=== PATIENT | female | born 1980 | race Hispanic/Latino ===

== ENCOUNTER 2023-05-27 14:07 | Inpatient (IN) | payer OTHER, SELFPAY ==
[2023-05-27 17:26] VITALS: BMI 47.2
[2023-05-27] MEDS ORDERED: Nicotine 14 MG PATCH TD PRN (18:15)
[2023-05-27] MEDS ORDERED: Calcium Carbonate 500 MG ChewTAB PO PRN (18:16)
[2023-05-27] MEDS ORDERED: Ondansetron ODT 4 MG TAB PO PRN (18:16)
[2023-05-27] MEDS ORDERED: VANCOMYCIN 2 GRAM/500 ML BAG 2 GM in Premix Bag 1 BAG IVPB SCH (18:30)
[2023-05-27] MEDS ORDERED: Meropenem 1 GM in Sodium Chloride 0.9% 100 ML IVPB SCH ×2 (18:30→18:45)
[2023-05-27] MEDS ORDERED: Vancomycin 1 GM in Premix Bag 1 BAG IVPB SCH (18:30)
[2023-05-27] MEDS ORDERED: Electrolyte Replacement Protocol 1 EACH FS PRN (19:15)
[2023-05-27] MEDS: HYDROcodone/Acetaminophen 5/325 mg Tablet PO PRN (19:51)
[2023-05-27] MEDS: Famotidine 20 MG TAB PO SCH (19:53)
[2023-05-27] MEDS: Atorvastatin Calcium 40 MG TAB PO SCH (19:53)
[2023-05-27] MEDS: Multivit, Therapeutic 1 TAB PO SCH (19:53)
[2023-05-27] MEDS: Acetaminophen 325 MG TAB PO PRN (19:53)
[2023-05-27] MEDS: Nystatin Powder 15 GM BOT TOP SCH (19:54)
[2023-05-27] MEDS: Nystatin 500,000 UNITS/5 ML UDCUP SSW SCH ×2 (22:10→22:13)
[2023-05-27] MEDS: Senokot S 8.6-50 MG TAB PO SCH (22:10)
[2023-05-27 23:13] LABS: #Basophils 0.1 thou/uL (0.0-0.2); #Eosinphils 0.1 thou/uL (0.0-0.7); #Monocytes 1.2 thou/uL (0.11-0.59); #Neutrophils 12.1 thou/uL (1.40-6.50); %Basophils 0.3 % (0.0-1.0); %Eosinophils 0.5 % (0.0-10.0); %Lymphocytes 8.9 % (21.0-51.0); %Neutrophils 81.5 % (42.0-75.0); Hemoglobin 7.6 g/dL (12.0-16.0); Mean Corpuscular HGB CONC 31.4 g/dL (32.0-36.0); Mean Corpuscular Hemoglobin 27.2 pg (27.0-31.0); Mean Corpuscular Volume 86.7 fl (78.0-98.0); Mean Platelet Volume 9.3 fL (7.4-10.4); Platelet Count 524 10x3/uL (130-400); RBC Distribution Width 15.2 % (11.5-14.5); Red Blood Cell (RBC) Count 2.79 mill/uL (4.20-5.40); White Blood Cell (WBC) Count 14.9 10x3/uL (4.8-10.8)
[2023-05-27 23:35] LABS: Vancomycin, Random 19.5 ug/mL (See Comment)
[2023-05-27 23:37] LABS: Hemoglobin A1c 5.6 % (4.0-6.0)
[2023-05-27 23:39] LABS: ALT (SGPT) 14 U/L (8-55); AST (SGOT) 12 U/L (5-34); Albumin 2.3 g/dL (3.5-5.0); Alkaline Phosphatase 59 U/L (40-110); Anion Gap 11 mmol/L (10-20); BUN (Urea Nitrogen) 7 mg/dL (7.0-18.7); Bilirubin, Total 0.2 mg/dL (0.2-1.2); CRP (Inflammatory) 10.21 mg/dL (= or < 0.5); Calc. Creatinine Clearance 177 mL/min (70-130); Calcium 8.3 mg/dL (7.8-10.44); Carbon Dioxide 23 mmol/L (22-29); Chloride 104 mmol/L (98-107); Estimated GFR 85; Globulin 3.2 g/dL (2.4-3.5); Glucose 105 mg/dL (70-105); Potassium 3.7 mmol/L (3.5-5.1); Protein, Total 5.5 g/dL (6.0-8.3); Sodium 134 mmol/L (136-145)
[2023-05-28 01:13] LABS: Bilirubin Negative (Negative); Blood, Urine 2+ (Negative); Clarity Clear (Clear); Glucose, Urine (Dipstick) Normal (Negative); Ketone, Urine Negative (Negative); Leukocyte Negative Leu/uL (Negative); Nitrite Negative (Negative); Protein, Urine (Dipstick) Negative (Neg-Trace); Specific Gravity, Urine 1.013 (1.002-1.036); Squamous Epithelial 0-3 HPF (0-3); Urobilinogen Normal mg/dL (Less than 2); WBC/HPF 0-3 HPF (0-3); pH, Urine 5.5 (5.0-9.0)
[2023-05-28 01:15] LABS: Bacteria/HPF Rare-Few HPF (None Seen)
[2023-05-28] MEDS: VANCOMYCIN 1.25 GM/250 ML BAG 1.25 GM in Premix Bag 1 BAG IVPB SCH ×2 (02:15→16:31)
[2023-05-28] MEDS: HYDROcodone/Acetaminophen 5/325 mg Tablet PO PRN ×3 (02:16→18:22)
[2023-05-28] MEDS: Acetaminophen 325 MG TAB PO PRN (02:19)
[2023-05-28] MEDS: Meropenem 1 GM in Sodium Chloride 0.9% 100 ML IVPB SCH ×3 (03:59→20:30)
[2023-05-28] MEDS: Morphine 4 MG/ML VIAL SLOW IVP PRN (08:59)
[2023-05-28] MEDS ORDERED: Hydrochlorothiazide 25 MG TAB PO SCH (09:00)
[2023-05-28] MEDS: Potassium Chloride 20 MEQ TAB PO SCH (09:02)
[2023-05-28] MEDS: Sertraline 25 MG TAB PO SCH (09:03)
[2023-05-28] MEDS: Venlafaxine 75 MG TAB PO SCH (09:04)
[2023-05-28] MEDS: Amlodipine 10 MG TAB PO SCH (09:04)
[2023-05-28] MEDS: Famotidine 20 MG TAB PO SCH ×2 (09:05→20:31)
[2023-05-28] MEDS: Hydrochlorothiazide 25 MG TAB PO SCH (09:05)
[2023-05-28] MEDS: Nystatin 500,000 UNITS/5 ML UDCUP SSW SCH ×4 (09:12→20:31)
[2023-05-28] MEDS: Senokot S 8.6-50 MG TAB PO SCH ×2 (09:15→20:31)
[2023-05-28] MEDS: Nystatin Powder 15 GM BOT TOP SCH ×2 (10:55→20:29)
[2023-05-28] MEDS ORDERED: Magnevist 469MG/ML 20 ML VIAL ONE (11:06)
[2023-05-28] MEDS: Saccharomyces boulardii 250 MG CAP PO SCH (13:24)
[2023-05-28 16:37] LABS: HIV (1/2) Antibody/Antigen Non-Reactive (NonReactive); HIV 1/2 INDEX 0.11 S/CO (<1.00)
[2023-05-28] MEDS ORDERED: Potassium Chloride 20 MEQ TAB PO SCH (17:00)
[2023-05-28] MEDS: Multivit, Therapeutic 1 TAB PO SCH (20:31)
[2023-05-28] MEDS: Atorvastatin Calcium 40 MG TAB PO SCH (20:32)
[2023-05-28] MEDS: Clindamycin/D5W 600 MG in Premix Bag 1 BAG IVPB SCH (23:28)
[2023-05-29 02:37] LABS: Vancomycin, Trough 19.1 ug/mL
[2023-05-29 02:44] LABS: Anion Gap 18 mmol/L (10-20); BUN (Urea Nitrogen) 8 mg/dL (7.0-18.7); Calc. Creatinine Clearance 152 mL/min (70-130); Calcium 9.3 mg/dL (7.8-10.44); Carbon Dioxide 17 mmol/L (22-29); Chloride 107 mmol/L (98-107); Estimated GFR 71; Glucose 85 mg/dL (70-105); Potassium 4.6 mmol/L (3.5-5.1); Sodium 137 mmol/L (136-145)
[2023-05-29] MEDS: VANCOMYCIN 1.25 GM/250 ML BAG 1.25 GM in Premix Bag 1 BAG IVPB SCH ×2 (03:31→16:30)
[2023-05-29] MEDS: Meropenem 1 GM in Sodium Chloride 0.9% 100 ML IVPB SCH ×3 (05:28→20:33)
[2023-05-29] MEDS: Clindamycin/D5W 600 MG in Premix Bag 1 BAG IVPB SCH ×3 (07:22→21:35)
[2023-05-29 07:30] LABS: #Eosinphils 0.1 thou/uL (0.0-0.7); #Monocytes 0.9 thou/uL (0.11-0.59); #Neutrophils 9.5 thou/uL (1.40-6.50); %Basophils 0.3 % (0.0-1.0); %Eosinophils 0.7 % (0.0-10.0); %Lymphocytes 11.1 % (21.0-51.0); %Monocytes 7.2 % (0.0-10.0); Mean Corpuscular HGB CONC 30.5 g/dL (32.0-36.0); Mean Corpuscular Hemoglobin 26.4 pg (27.0-31.0); Mean Corpuscular Volume 86.5 fl (78.0-98.0); Mean Platelet Volume 9.8 fL (7.4-10.4); Platelet Count 632 10x3/uL (130-400); RBC Distribution Width 15.2 % (11.5-14.5); Red Blood Cell (RBC) Count 3.03 mill/uL (4.20-5.40); White Blood Cell (WBC) Count 11.9 10x3/uL (4.8-10.8)
[2023-05-29 08:25] LABS: Lactic Acid 1.6 mmol/L (0.5-2.2)
[2023-05-29 08:27] LABS: Anion Gap 13 mmol/L (10-20); BUN (Urea Nitrogen) 7 mg/dL (7.0-18.7); Calc. Creatinine Clearance 177 mL/min (70-130); Carbon Dioxide 24 mmol/L (22-29); Chloride 105 mmol/L (98-107); Sodium 138 mmol/L (136-145)
[2023-05-29 08:28] LABS: Calcium 8.8 mg/dL (7.8-10.44); Estimated GFR 85; Glucose 90 mg/dL (70-105)
[2023-05-29] MEDS: HYDROcodone/Acetaminophen 5/325 mg Tablet PO PRN ×2 (08:35→15:40)
[2023-05-29] MEDS: Famotidine 20 MG TAB PO SCH ×2 (08:36→20:27)
[2023-05-29] MEDS: Potassium Chloride 20 MEQ TAB PO SCH (08:36)
[2023-05-29] MEDS: Sertraline 25 MG TAB PO SCH (08:36)
[2023-05-29] MEDS: Venlafaxine 75 MG TAB PO SCH (08:36)
[2023-05-29] MEDS: Hydrochlorothiazide 25 MG TAB PO SCH (08:37)
[2023-05-29] MEDS: Amlodipine 10 MG TAB PO SCH (08:37)
[2023-05-29] MEDS: Nystatin 500,000 UNITS/5 ML UDCUP SSW SCH ×4 (08:37→20:27)
[2023-05-29] MEDS: Senokot S 8.6-50 MG TAB PO SCH ×2 (10:44→20:28)
[2023-05-29] MEDS: Nystatin Powder 15 GM BOT TOP SCH ×2 (10:44→20:28)
[2023-05-29] MEDS ORDERED: Furosemide 40 MG/4 ML VIAL SLOW IVP SCH (11:00)
[2023-05-29] MEDS ORDERED: Gabapentin 300 MG CAP PO SCH (11:00)
[2023-05-29] MEDS: Saccharomyces boulardii 250 MG CAP PO SCH (14:38)
[2023-05-29] MEDS: Multivit, Therapeutic 1 TAB PO SCH (20:28)
[2023-05-29] MEDS: Atorvastatin Calcium 40 MG TAB PO SCH (20:28)
[2023-05-29] MEDS: Gabapentin 300 MG CAP PO SCH (20:28)
[2023-05-29] MEDS: Acetaminophen 325 MG TAB PO PRN (20:33)
[2023-05-30 02:33] LABS: #Basophils 0.1 thou/uL (0.0-0.2); #Eosinphils 0.1 thou/uL (0.0-0.7); #Monocytes 0.9 thou/uL (0.11-0.59); #Neutrophils 7.8 thou/uL (1.40-6.50); %Basophils 0.6 % (0.0-1.0); %Eosinophils 1.2 % (0.0-10.0); %Monocytes 8.6 % (0.0-10.0); %Neutrophils 76.1 % (42.0-75.0); Hemoglobin 8.1 g/dL (12.0-16.0); Mean Corpuscular HGB CONC 30.9 g/dL (32.0-36.0); Mean Corpuscular Hemoglobin 26.5 pg (27.0-31.0); Mean Corpuscular Volume 85.6 fl (78.0-98.0); Mean Platelet Volume 9.2 fL (7.4-10.4); Platelet Count 641 10x3/uL (130-400); Red Blood Cell (RBC) Count 3.06 mill/uL (4.20-5.40); White Blood Cell (WBC) Count 10.3 10x3/uL (4.8-10.8)
[2023-05-30 02:54] LABS: Vancomycin, Trough 19.2 ug/mL
[2023-05-30] MEDS: VANCOMYCIN 1.25 GM/250 ML BAG 1.25 GM in Premix Bag 1 BAG IVPB SCH ×2 (03:22→15:39)
[2023-05-30 03:55] LABS: Anion Gap 12 mmol/L (10-20); BUN (Urea Nitrogen) 9 mg/dL (7.0-18.7); CRP (Inflammatory) 8.09 mg/dL (= or < 0.5); Calc. Creatinine Clearance 181 mL/min (70-130); Calcium 8.5 mg/dL (7.8-10.44); Carbon Dioxide 24 mmol/L (22-29); Chloride 103 mmol/L (98-107); Estimated GFR 88; Glucose 112 mg/dL (70-105); Potassium 4.1 mmol/L (3.5-5.1); Sodium 135 mmol/L (136-145)
[2023-05-30] MEDS: Meropenem 1 GM in Sodium Chloride 0.9% 100 ML IVPB SCH ×3 (05:31→20:33)
[2023-05-30] MEDS: Clindamycin/D5W 600 MG in Premix Bag 1 BAG IVPB SCH ×3 (05:32→22:40)
[2023-05-30] MEDS: Acetaminophen 325 MG TAB PO PRN (05:51)
[2023-05-30] MEDS: Morphine 4 MG/ML VIAL SLOW IVP PRN ×2 (05:51→10:27)
[2023-05-30] MEDS: Potassium Chloride 20 MEQ TAB PO SCH (09:04)
[2023-05-30] MEDS: Gabapentin 300 MG CAP PO SCH ×2 (09:04→20:31)
[2023-05-30] MEDS: Nystatin 500,000 UNITS/5 ML UDCUP SSW SCH ×4 (09:05→20:31)
[2023-05-30] MEDS: Famotidine 20 MG TAB PO SCH ×2 (09:05→20:31)
[2023-05-30] MEDS: Venlafaxine 75 MG TAB PO SCH (09:05)
[2023-05-30] MEDS: Sertraline 25 MG TAB PO SCH (09:05)
[2023-05-30] MEDS: Amlodipine 10 MG TAB PO SCH (09:08)
[2023-05-30] MEDS: Nystatin Powder 15 GM BOT TOP SCH ×2 (09:08→20:36)
[2023-05-30] MEDS: Senokot S 8.6-50 MG TAB PO SCH ×2 (09:08→20:36)
[2023-05-30] MEDS ORDERED: Furosemide 40 MG/4 ML VIAL SLOW IVP SCH (10:45)
[2023-05-30] MEDS: Saccharomyces boulardii 250 MG CAP PO SCH (15:39)
[2023-05-30] MEDS: Furosemide 40 MG/4 ML VIAL SLOW IVP SCH (15:40)
[2023-05-30] MEDS: Multivit, Therapeutic 1 TAB PO SCH (20:31)
[2023-05-30] MEDS: Atorvastatin Calcium 40 MG TAB PO SCH (20:31)
[2023-05-30] MEDS: HYDROcodone/Acetaminophen 5/325 mg Tablet PO PRN (20:32)
[2023-05-31] MEDS: VANCOMYCIN 1.25 GM/250 ML BAG 1.25 GM in Premix Bag 1 BAG IVPB SCH (03:22)
[2023-05-31] MEDS: Meropenem 1 GM in Sodium Chloride 0.9% 100 ML IVPB SCH ×3 (05:29→20:18)
[2023-05-31] MEDS: Clindamycin/D5W 600 MG in Premix Bag 1 BAG IVPB SCH ×3 (05:30→23:20)
[2023-05-31] MEDS: Furosemide 40 MG/4 ML VIAL SLOW IVP SCH ×2 (05:36→13:32)
[2023-05-31 07:30] LABS: #Basophils 0.1 thou/uL (0.0-0.2); #Eosinphils 0.1 thou/uL (0.0-0.7); #Monocytes 0.8 thou/uL (0.11-0.59); #Neutrophils 7.2 thou/uL (1.40-6.50); %Basophils 0.8 % (0.0-1.0); %Eosinophils 1.3 % (0.0-10.0); %Lymphocytes 16.7 % (21.0-51.0); %Monocytes 7.6 % (0.0-10.0); %Neutrophils 73.1 % (42.0-75.0); Hemoglobin 9.4 g/dL (12.0-16.0); Mean Corpuscular HGB CONC 30.7 g/dL (32.0-36.0); Mean Corpuscular Hemoglobin 26.5 pg (27.0-31.0); Mean Corpuscular Volume 86.2 fl (78.0-98.0); Mean Platelet Volume 9.2 fL (7.4-10.4); Platelet Count 739 10x3/uL (130-400); Red Blood Cell (RBC) Count 3.55 mill/uL (4.20-5.40); White Blood Cell (WBC) Count 9.9 10x3/uL (4.8-10.8)
[2023-05-31 07:50] LABS: Anion Gap 15 mmol/L (10-20); BUN (Urea Nitrogen) 10 mg/dL (7.0-18.7); Calc. Creatinine Clearance 159 mL/min (70-130); Carbon Dioxide 26 mmol/L (22-29); Chloride 101 mmol/L (98-107); Estimated GFR 75; Glucose 97 mg/dL (70-105); Potassium 4.4 mmol/L (3.5-5.1); Sodium 138 mmol/L (136-145)
[2023-05-31] MEDS: Venlafaxine 75 MG TAB PO SCH (09:00)
[2023-05-31] MEDS: HYDROcodone/Acetaminophen 5/325 mg Tablet PO PRN ×2 (09:00→20:15)
[2023-05-31] MEDS: Gabapentin 300 MG CAP PO SCH ×2 (09:00→20:13)
[2023-05-31] MEDS: Potassium Chloride 20 MEQ TAB PO SCH (09:00)
[2023-05-31] MEDS: Sertraline 25 MG TAB PO SCH (09:01)
[2023-05-31] MEDS: Famotidine 20 MG TAB PO SCH ×2 (09:01→20:12)
[2023-05-31] MEDS: Amlodipine 10 MG TAB PO SCH (09:01)
[2023-05-31] MEDS: Nystatin 500,000 UNITS/5 ML UDCUP SSW SCH ×4 (09:01→22:27)
[2023-05-31] MEDS: Nystatin Powder 15 GM BOT TOP SCH ×2 (09:01→22:28)
[2023-05-31] MEDS: Senokot S 8.6-50 MG TAB PO SCH ×2 (09:02→22:28)
[2023-05-31] MEDS: Saccharomyces boulardii 250 MG CAP PO SCH (13:32)
[2023-05-31 14:18] LABS: Vancomycin, Trough 21.7 ug/mL
[2023-05-31] MEDS: Morphine 4 MG/ML VIAL SLOW IVP PRN (15:49)
[2023-05-31] MEDS: Vancomycin 1 GM in Premix Bag 1 BAG IVPB SCH (16:35)
[2023-05-31] MEDS: Multivit, Therapeutic 1 TAB PO SCH (20:13)
[2023-05-31] MEDS: Atorvastatin Calcium 40 MG TAB PO SCH (20:13)
[2023-06-01] MEDS: HYDROcodone/Acetaminophen 5/325 mg Tablet PO PRN ×3 (04:16→22:00)
[2023-06-01] MEDS: Vancomycin 1 GM in Premix Bag 1 BAG IVPB SCH ×2 (04:18→15:45)
[2023-06-01] MEDS: Acetaminophen 325 MG TAB PO PRN (04:34)
[2023-06-01] MEDS: Meropenem 1 GM in Sodium Chloride 0.9% 100 ML IVPB SCH ×3 (04:36→20:06)
[2023-06-01] MEDS: Clindamycin/D5W 600 MG in Premix Bag 1 BAG IVPB SCH ×3 (06:05→21:59)
[2023-06-01 07:46] LABS: #Basophils 0.1 thou/uL (0.0-0.2); #Eosinphils 0.1 thou/uL (0.0-0.7); #Monocytes 0.8 thou/uL (0.11-0.59); %Basophils 0.8 % (0.0-1.0); %Eosinophils 1.5 % (0.0-10.0); %Lymphocytes 15.6 % (21.0-51.0); %Monocytes 8.6 % (0.0-10.0); Hemoglobin 8.5 g/dL (12.0-16.0); Mean Corpuscular HGB CONC 31.7 g/dL (32.0-36.0); Mean Corpuscular Hemoglobin 26.5 pg (27.0-31.0); Mean Corpuscular Volume 83.5 fl (78.0-98.0); Mean Platelet Volume 8.9 fL (7.4-10.4); Platelet Count 729 10x3/uL (130-400); RBC Distribution Width 14.8 % (11.5-14.5); Red Blood Cell (RBC) Count 3.21 mill/uL (4.20-5.40); White Blood Cell (WBC) Count 9.5 10x3/uL (4.8-10.8)
[2023-06-01 08:17] LABS: Anion Gap 15 mmol/L (10-20); BUN (Urea Nitrogen) 12 mg/dL (7.0-18.7); Calc. Creatinine Clearance 155 mL/min (70-130); Carbon Dioxide 27 mmol/L (22-29); Chloride 99 mmol/L (98-107); Estimated GFR 73; Glucose 114 mg/dL (70-105); Potassium 4.1 mmol/L (3.5-5.1); Sodium 137 mmol/L (136-145)
[2023-06-01] MEDS ORDERED: Furosemide 40 MG/4 ML VIAL SLOW IVP SCH (09:15)
[2023-06-01] MEDS: Sertraline 25 MG TAB PO SCH (09:44)
[2023-06-01] MEDS: Nystatin 500,000 UNITS/5 ML UDCUP SSW SCH ×4 (09:44→20:04)
[2023-06-01] MEDS: Potassium Chloride 20 MEQ TAB PO SCH (09:45)
[2023-06-01] MEDS: Venlafaxine 75 MG TAB PO SCH (09:45)
[2023-06-01] MEDS: Famotidine 20 MG TAB PO SCH ×2 (09:45→20:04)
[2023-06-01] MEDS: Nystatin Powder 15 GM BOT TOP SCH ×2 (09:46→20:52)
[2023-06-01] MEDS: Gabapentin 300 MG CAP PO SCH ×2 (09:48→20:02)
[2023-06-01] MEDS: Amlodipine 10 MG TAB PO SCH (09:48)
[2023-06-01] MEDS: Senokot S 8.6-50 MG TAB PO SCH ×2 (09:51→20:52)
[2023-06-01] MEDS: Saccharomyces boulardii 250 MG CAP PO SCH (12:18)
[2023-06-01] MEDS: Morphine 4 MG/ML VIAL SLOW IVP PRN (19:50)
[2023-06-01] MEDS: Multivit, Therapeutic 1 TAB PO SCH (20:02)
[2023-06-01] MEDS: Atorvastatin Calcium 40 MG TAB PO SCH (20:02)
[2023-06-01] MEDS ORDERED: Morphine 4 MG/ML VIAL SLOW IVP PRN (23:10)
[2023-06-01] MEDS ORDERED: Morphine 4 MG/ML VIAL SLOW IVP SCH (23:15)
[2023-06-02 04:09] LABS: #Basophils 0.1 thou/uL (0.0-0.2); #Eosinphils 0.2 thou/uL (0.0-0.7); #Monocytes 0.8 thou/uL (0.11-0.59); #Neutrophils 7.4 thou/uL (1.40-6.50); %Basophils 0.8 % (0.0-1.0); %Eosinophils 1.5 % (0.0-10.0); %Lymphocytes 16.5 % (21.0-51.0); %Monocytes 8.2 % (0.0-10.0); %Neutrophils 72.4 % (42.0-75.0); Mean Corpuscular HGB CONC 30.8 g/dL (32.0-36.0); Mean Corpuscular Hemoglobin 26.7 pg (27.0-31.0); Mean Platelet Volume 9.1 fL (7.4-10.4); Platelet Count 679 10x3/uL (130-400); RBC Distribution Width 14.8 % (11.5-14.5); White Blood Cell (WBC) Count 10.2 10x3/uL (4.8-10.8)
[2023-06-02] MEDS: Vancomycin 1 GM in Premix Bag 1 BAG IVPB SCH ×2 (04:25→15:41)
[2023-06-02 04:29] LABS: Anion Gap 14 mmol/L (10-20); BUN (Urea Nitrogen) 15 mg/dL (7.0-18.7); Calc. Creatinine Clearance 157 mL/min (70-130); Calcium 9.1 mg/dL (7.8-10.44); Carbon Dioxide 28 mmol/L (22-29); Chloride 99 mmol/L (98-107); Estimated GFR 74; Glucose 84 mg/dL (70-105); Potassium 4.2 mmol/L (3.5-5.1); Sodium 137 mmol/L (136-145)
[2023-06-02] MEDS: HYDROcodone/Acetaminophen 5/325 mg Tablet PO PRN ×3 (04:33→15:41)
[2023-06-02] MEDS: Acetaminophen 325 MG TAB PO PRN (04:34)
[2023-06-02 04:35] LABS: Vancomycin, Trough 21.2 ug/mL
[2023-06-02 04:45] LABS: Mean Corpuscular Volume 86.7 fl (78.0-98.0)
[2023-06-02] MEDS: Meropenem 1 GM in Sodium Chloride 0.9% 100 ML IVPB SCH ×3 (05:30→20:04)
[2023-06-02] MEDS: Clindamycin/D5W 600 MG in Premix Bag 1 BAG IVPB SCH ×2 (06:24→14:28)
[2023-06-02] MEDS: Potassium Chloride 20 MEQ TAB PO SCH (09:31)
[2023-06-02] MEDS: Venlafaxine 75 MG TAB PO SCH (09:31)
[2023-06-02] MEDS: Sertraline 25 MG TAB PO SCH (09:31)
[2023-06-02] MEDS: Amlodipine 10 MG TAB PO SCH (09:32)
[2023-06-02] MEDS: Famotidine 20 MG TAB PO SCH ×2 (09:32→20:02)
[2023-06-02] MEDS: Nystatin 500,000 UNITS/5 ML UDCUP SSW SCH ×4 (09:32→20:04)
[2023-06-02] MEDS: Senokot S 8.6-50 MG TAB PO SCH ×2 (09:33→20:13)
[2023-06-02] MEDS: Nystatin Powder 15 GM BOT TOP SCH ×2 (09:33→20:13)
[2023-06-02] MEDS: Gabapentin 300 MG CAP PO SCH ×2 (09:33→20:03)
[2023-06-02] MEDS ORDERED: Gabapentin 300 MG CAP PO SCH ×2 (09:50→10:00)
[2023-06-02] MEDS: Ondansetron PF 4 MG/2 ML Vial IVP PRN (09:50)
[2023-06-02] MEDS ORDERED: Furosemide 40 MG/4 ML VIAL SLOW IVP SCH (10:15)
[2023-06-02] MEDS ORDERED: Potassium Chloride 20 MEQ TAB PO SCH (10:15)
[2023-06-02] MEDS: Albumin 25% 25 GM/100 ML BOT IVPB SCH ×3 (10:39→23:29)
[2023-06-02] MEDS ORDERED: Furosemide 100 MG/10 ML VIAL SLOW IVP SCH (14:00)
[2023-06-02] MEDS ORDERED: Furosemide 40 MG TAB PO SCH (14:00)
[2023-06-02] MEDS ORDERED: Furosemide 20 MG TAB PO SCH (14:00)
[2023-06-02] MEDS: Saccharomyces boulardii 250 MG CAP PO SCH (14:56)
[2023-06-02] MEDS: Furosemide 40 MG/4 ML VIAL SLOW IVP SCH (14:56)
[2023-06-02] MEDS: Atorvastatin Calcium 40 MG TAB PO SCH (20:02)
[2023-06-02] MEDS: Multivit, Therapeutic 1 TAB PO SCH (20:04)
[2023-06-03] MEDS: HYDROcodone/Acetaminophen 5/325 mg Tablet PO PRN ×3 (00:45→20:29)
[2023-06-03] MEDS: Vancomycin 1 GM in Premix Bag 1 BAG IVPB SCH ×2 (02:55→15:08)
[2023-06-03] MEDS: Albumin 25% 25 GM/100 ML BOT IVPB SCH (05:09)
[2023-06-03] MEDS: Furosemide 40 MG/4 ML VIAL SLOW IVP SCH ×2 (05:09→13:18)
[2023-06-03] MEDS: Meropenem 1 GM in Sodium Chloride 0.9% 100 ML IVPB SCH ×3 (05:09→20:23)
[2023-06-03 06:02] LABS: #Basophils 0.1 thou/uL (0.0-0.2); #Eosinphils 0.2 thou/uL (0.0-0.7); #Monocytes 0.6 thou/uL (0.11-0.59); %Basophils 0.7 % (0.0-1.0); %Eosinophils 1.9 % (0.0-10.0); %Lymphocytes 19.7 % (21.0-51.0); %Monocytes 7.3 % (0.0-10.0); %Neutrophils 69.7 % (42.0-75.0); Hemoglobin 8.6 g/dL (12.0-16.0); Mean Corpuscular HGB CONC 30.9 g/dL (32.0-36.0); Mean Corpuscular Hemoglobin 26.2 pg (27.0-31.0); Mean Corpuscular Volume 84.8 fl (78.0-98.0); Mean Platelet Volume 8.9 fL (7.4-10.4); Platelet Count 618 10x3/uL (130-400); RBC Distribution Width 14.7 % (11.5-14.5); Red Blood Cell (RBC) Count 3.28 mill/uL (4.20-5.40); White Blood Cell (WBC) Count 8.6 10x3/uL (4.8-10.8)
[2023-06-03 06:28] LABS: ALT (SGPT) 29 U/L (8-55); AST (SGOT) 25 U/L (5-34); Albumin 3.5 g/dL (3.5-5.0); Alkaline Phosphatase 79 U/L (40-110); Anion Gap 14 mmol/L (10-20); BUN (Urea Nitrogen) 17 mg/dL (7.0-18.7); Bilirubin, Total 0.4 mg/dL (0.2-1.2); Calc. Creatinine Clearance 128 mL/min (70-130); Calcium 9.5 mg/dL (7.8-10.44); Carbon Dioxide 31 mmol/L (22-29); Chloride 95 mmol/L (98-107); Estimated GFR 58; Globulin 3.3 g/dL (2.4-3.5); Glucose 101 mg/dL (70-105); Potassium 4.1 mmol/L (3.5-5.1); Protein, Total 6.8 g/dL (6.0-8.3); Sodium 136 mmol/L (136-145)
[2023-06-03] MEDS: Gabapentin 300 MG CAP PO SCH ×2 (08:28→20:24)
[2023-06-03] MEDS: Sertraline 25 MG TAB PO SCH (08:28)
[2023-06-03] MEDS: Venlafaxine 75 MG TAB PO SCH (08:28)
[2023-06-03] MEDS: Famotidine 20 MG TAB PO SCH ×2 (08:29→20:24)
[2023-06-03] MEDS: Potassium Chloride 20 MEQ TAB PO SCH ×2 (08:29→08:46)
[2023-06-03] MEDS: Nystatin 500,000 UNITS/5 ML UDCUP SSW SCH ×4 (08:39→20:24)
[2023-06-03] MEDS: Nystatin Powder 15 GM BOT TOP SCH ×2 (08:59→20:25)
[2023-06-03] MEDS: Senokot S 8.6-50 MG TAB PO SCH ×2 (08:59→20:24)
[2023-06-03] MEDS: Amlodipine 10 MG TAB PO SCH (08:59)
[2023-06-03] MEDS ORDERED: Furosemide 40 MG/4 ML VIAL SLOW IVP SCH (09:00)
[2023-06-03] MEDS: Saccharomyces boulardii 250 MG CAP PO SCH (13:18)
[2023-06-03 14:29] LABS: Vancomycin, Trough 23.2 ug/mL
[2023-06-03] MEDS: Atorvastatin Calcium 40 MG TAB PO SCH (20:24)
[2023-06-03] MEDS: Multivit, Therapeutic 1 TAB PO SCH (20:24)
[2023-06-04] MEDS ORDERED: Vancomycin 1 GM in Premix Bag 1 BAG IVPB SCH (02:00)
[2023-06-04] MEDS ORDERED: Nicotine 14 MG PATCH TD SCH (03:00)
[2023-06-04] MEDS: Meropenem 1 GM in Sodium Chloride 0.9% 100 ML IVPB SCH ×3 (04:37→20:36)
[2023-06-04] MEDS: HYDROcodone/Acetaminophen 5/325 mg Tablet PO PRN ×2 (04:42→20:36)
[2023-06-04 07:03] LABS: Anion Gap 15 mmol/L (10-20); BUN (Urea Nitrogen) 19 mg/dL (7.0-18.7); CRP (Inflammatory) 2.02 mg/dL (= or < 0.5); Calc. Creatinine Clearance 137 mL/min (70-130); Calcium 9.6 mg/dL (7.8-10.44); Carbon Dioxide 30 mmol/L (22-29); Chloride 96 mmol/L (98-107); Estimated GFR 63; Glucose 116 mg/dL (70-105); Sodium 137 mmol/L (136-145)
[2023-06-04] MEDS ORDERED: Furosemide 20 MG/2 ML VIAL SLOW IVP SCH (09:30)
[2023-06-04] MEDS: Gabapentin 300 MG CAP PO SCH ×2 (09:41→20:35)
[2023-06-04] MEDS: Amlodipine 10 MG TAB PO SCH (09:42)
[2023-06-04] MEDS: Sertraline 25 MG TAB PO SCH (09:42)
[2023-06-04] MEDS: Venlafaxine 75 MG TAB PO SCH (09:42)
[2023-06-04] MEDS: Potassium Chloride 20 MEQ TAB PO SCH ×2 (09:43→11:04)
[2023-06-04] MEDS: Famotidine 20 MG TAB PO SCH ×2 (09:43→20:36)
[2023-06-04] MEDS: Nystatin Powder 15 GM BOT TOP SCH ×2 (09:44→20:41)
[2023-06-04] MEDS: Senokot S 8.6-50 MG TAB PO SCH ×2 (09:47→20:26)
[2023-06-04] MEDS: Nystatin 500,000 UNITS/5 ML UDCUP SSW SCH ×4 (10:02→20:36)
[2023-06-04] MEDS: Furosemide 20 MG TAB PO SCH (13:12)
[2023-06-04] MEDS: Albumin 25% 25 GM/100 ML BOT IVPB SCH ×3 (13:12→23:30)
[2023-06-04] MEDS: Saccharomyces boulardii 250 MG CAP PO SCH (13:13)
[2023-06-04] MEDS: Atorvastatin Calcium 40 MG TAB PO SCH (20:36)
[2023-06-04] MEDS: Multivit, Therapeutic 1 TAB PO SCH (20:36)
[2023-06-05] MEDS: Albumin 25% 25 GM/100 ML BOT IVPB SCH (04:17)
[2023-06-05] MEDS: Meropenem 1 GM in Sodium Chloride 0.9% 100 ML IVPB SCH ×3 (04:58→20:32)
[2023-06-05 06:46] LABS: #Basophils 0.1 thou/uL (0.0-0.2); #Eosinphils 0.2 thou/uL (0.0-0.7); #Monocytes 0.6 thou/uL (0.11-0.59); #Neutrophils 5.3 thou/uL (1.40-6.50); %Basophils 0.6 % (0.0-1.0); %Lymphocytes 19.4 % (21.0-51.0); %Monocytes 7.4 % (0.0-10.0); %Neutrophils 69.1 % (42.0-75.0); Hemoglobin 8.9 g/dL (12.0-16.0); Mean Corpuscular HGB CONC 31.8 g/dL (32.0-36.0); Mean Corpuscular Volume 84.8 fl (78.0-98.0); Mean Platelet Volume 9.1 fL (7.4-10.4); Platelet Count 563 10x3/uL (130-400); RBC Distribution Width 14.8 % (11.5-14.5); White Blood Cell (WBC) Count 7.7 10x3/uL (4.8-10.8)
[2023-06-05 07:10] LABS: Anion Gap 15 mmol/L (10-20); BUN (Urea Nitrogen) 18 mg/dL (7.0-18.7); Calc. Creatinine Clearance 140 mL/min (70-130); Carbon Dioxide 28 mmol/L (22-29); Chloride 99 mmol/L (98-107); Estimated GFR 64; Glucose 99 mg/dL (70-105); Potassium 4.2 mmol/L (3.5-5.1); Sodium 138 mmol/L (136-145)
[2023-06-05] MEDS: Nystatin 500,000 UNITS/5 ML UDCUP SSW SCH ×4 (08:38→20:31)
[2023-06-05] MEDS: Venlafaxine 75 MG TAB PO SCH (08:38)
[2023-06-05] MEDS: Sertraline 25 MG TAB PO SCH (08:38)
[2023-06-05] MEDS: Famotidine 20 MG TAB PO SCH ×2 (08:38→20:31)
[2023-06-05] MEDS: Gabapentin 300 MG CAP PO SCH ×2 (08:38→20:32)
[2023-06-05] MEDS: Amlodipine 10 MG TAB PO SCH (08:39)
[2023-06-05] MEDS: HYDROcodone/Acetaminophen 5/325 mg Tablet PO PRN (08:39)
[2023-06-05] MEDS: Potassium Chloride 20 MEQ TAB PO SCH (08:39)
[2023-06-05] MEDS: Furosemide 20 MG TAB PO SCH ×2 (08:40→13:50)
[2023-06-05] MEDS: Nystatin Powder 15 GM BOT TOP SCH ×2 (08:40→18:56)
[2023-06-05] MEDS: Senokot S 8.6-50 MG TAB PO SCH ×2 (08:40→18:56)
[2023-06-05] MEDS: Saccharomyces boulardii 250 MG CAP PO SCH (13:49)
[2023-06-05] MEDS: Multivit, Therapeutic 1 TAB PO SCH (20:32)
[2023-06-05] MEDS: Atorvastatin Calcium 40 MG TAB PO SCH (20:32)
[2023-06-06] MEDS: Meropenem 1 GM in Sodium Chloride 0.9% 100 ML IVPB SCH ×2 (06:33→14:09)
[2023-06-06 07:56] LABS: Anion Gap 12 mmol/L (10-20); BUN (Urea Nitrogen) 18 mg/dL (7.0-18.7); Calc. Creatinine Clearance 142 mL/min (70-130); Calcium 9.8 mg/dL (7.8-10.44); Carbon Dioxide 29 mmol/L (22-29); Chloride 102 mmol/L (98-107); Estimated GFR 66; Glucose 99 mg/dL (70-105); Potassium 4.4 mmol/L (3.5-5.1); Sodium 139 mmol/L (136-145)
[2023-06-06] MEDS: Amlodipine 10 MG TAB PO SCH (08:50)
[2023-06-06] MEDS: Furosemide 20 MG TAB PO SCH (08:50)
[2023-06-06] MEDS: Sertraline 25 MG TAB PO SCH (08:50)
[2023-06-06] MEDS: Nystatin 500,000 UNITS/5 ML UDCUP SSW SCH ×4 (08:51→21:48)
[2023-06-06] MEDS: Potassium Chloride 20 MEQ TAB PO SCH (08:51)
[2023-06-06] MEDS: HYDROcodone/Acetaminophen 5/325 mg Tablet PO PRN ×2 (08:51→17:40)
[2023-06-06] MEDS: Gabapentin 300 MG CAP PO SCH ×2 (08:51→20:23)
[2023-06-06] MEDS: Venlafaxine 75 MG TAB PO SCH (08:51)
[2023-06-06] MEDS: Famotidine 20 MG TAB PO SCH ×2 (08:51→20:22)
[2023-06-06] MEDS: Nystatin Powder 15 GM BOT TOP SCH ×2 (08:52→20:34)
[2023-06-06] MEDS: Senokot S 8.6-50 MG TAB PO SCH ×2 (09:46→20:36)
[2023-06-06] MEDS: Saccharomyces boulardii 250 MG CAP PO SCH (14:09)
[2023-06-06] MEDS ORDERED: Cefdinir 300 MG CAP PO SCH (14:45)
[2023-06-06] MEDS: Multivit, Therapeutic 1 TAB PO SCH (20:22)
[2023-06-06] MEDS: Atorvastatin Calcium 40 MG TAB PO SCH (20:23)
[2023-06-06] MEDS: Cefdinir 300 MG CAP PO SCH (20:27)
[2023-06-07] MEDS: HYDROcodone/Acetaminophen 5/325 mg Tablet PO PRN ×3 (03:52→20:34)
[2023-06-07] MEDS: Potassium Chloride 20 MEQ TAB PO SCH (09:08)
[2023-06-07] MEDS: Sertraline 25 MG TAB PO SCH (09:09)
[2023-06-07] MEDS: Amlodipine 10 MG TAB PO SCH (09:09)
[2023-06-07] MEDS: Gabapentin 300 MG CAP PO SCH ×2 (09:10→20:34)
[2023-06-07] MEDS: Cefdinir 300 MG CAP PO SCH ×2 (09:10→20:32)
[2023-06-07] MEDS: Venlafaxine 75 MG TAB PO SCH (09:10)
[2023-06-07] MEDS: Famotidine 20 MG TAB PO SCH ×2 (09:10→20:33)
[2023-06-07] MEDS: Furosemide 20 MG TAB PO SCH ×2 (09:10→20:33)
[2023-06-07] MEDS: Nystatin 500,000 UNITS/5 ML UDCUP SSW SCH ×4 (09:11→20:38)
[2023-06-07] MEDS: Senokot S 8.6-50 MG TAB PO SCH ×2 (09:11→20:33)
[2023-06-07] MEDS: Nystatin Powder 15 GM BOT TOP SCH ×2 (09:12→20:35)
[2023-06-07] MEDS: Saccharomyces boulardii 250 MG CAP PO SCH (13:58)
[2023-06-07] MEDS: Multivit, Therapeutic 1 TAB PO SCH (20:32)
[2023-06-07] MEDS: Atorvastatin Calcium 40 MG TAB PO SCH (20:33)
[2023-06-07] MEDS ORDERED: diphenhydrAMINE 25 MG CAP PO SCH (23:59)
[2023-06-08] MEDS: Potassium Chloride 20 MEQ TAB PO SCH (08:06)
[2023-06-08] MEDS: Famotidine 20 MG TAB PO SCH ×2 (08:06→20:49)
[2023-06-08] MEDS: Sertraline 25 MG TAB PO SCH (08:06)
[2023-06-08] MEDS: Cefdinir 300 MG CAP PO SCH ×2 (08:06→20:49)
[2023-06-08] MEDS: Amlodipine 10 MG TAB PO SCH (08:07)
[2023-06-08] MEDS: Venlafaxine 75 MG TAB PO SCH (08:07)
[2023-06-08] MEDS: Gabapentin 300 MG CAP PO SCH ×2 (08:07→20:49)
[2023-06-08] MEDS: Furosemide 20 MG TAB PO SCH ×2 (08:07→20:49)
[2023-06-08] MEDS: Nystatin Powder 15 GM BOT TOP SCH ×2 (08:08→19:48)
[2023-06-08] MEDS: Senokot S 8.6-50 MG TAB PO SCH ×2 (08:09→19:48)
[2023-06-08] MEDS: Nystatin 500,000 UNITS/5 ML UDCUP SSW SCH ×3 (08:09→18:09)
[2023-06-08] MEDS: Saccharomyces boulardii 250 MG CAP PO SCH (15:08)
[2023-06-08] MEDS: Atorvastatin Calcium 40 MG TAB PO SCH (20:49)
[2023-06-08] MEDS: Multivit, Therapeutic 1 TAB PO SCH (20:49)
[2023-06-09] MEDS: Ondansetron PF 4 MG/2 ML Vial IVP PRN (05:18)
[2023-06-09] MEDS: Famotidine 20 MG TAB PO SCH (08:44)
[2023-06-09] MEDS: Cefdinir 300 MG CAP PO SCH (08:44)
[2023-06-09] MEDS: Amlodipine 10 MG TAB PO SCH (08:44)
[2023-06-09] MEDS: Furosemide 20 MG TAB PO SCH (08:45)
[2023-06-09] MEDS: Gabapentin 300 MG CAP PO SCH (08:45)
[2023-06-09] MEDS: Potassium Chloride 20 MEQ TAB PO SCH (08:45)
[2023-06-09] MEDS: Sertraline 25 MG TAB PO SCH (08:45)
[2023-06-09] MEDS: Venlafaxine 75 MG TAB PO SCH (08:45)
[2023-06-09] MEDS: Nystatin Powder 15 GM BOT TOP SCH (08:46)
[2023-06-09] MEDS: Senokot S 8.6-50 MG TAB PO SCH (08:47)
[2023-06-09 12:13] VITALS: BP 118/80; TEMP 97.8
== END 2023-06-09 13:26 | disposition home or self-care (01) | DRG 872 ==
LOC: T4-A 16:57
PROVIDERS: ADMIT Internal Medicine; ATTEND Family Medicine
DX: A41.9 Sepsis, unspecified organism (principal); L03.115 Cellulitis of right lower limb; Z68.42 Body mass index [BMI] 45.0-49.9, adult; E87.1 Hypo-osmolality and hyponatremia; B37.0 Candidal stomatitis; N17.9 Acute kidney failure, unspecified; I10 Essential (primary) hypertension; F17.210 Nicotine dependence, cigarettes, uncomplicated; E87.6 Hypokalemia; E78.5 Hyperlipidemia, unspecified; F32.A Depression, unspecified; M60.9 Myositis, unspecified; E66.01 Morbid (severe) obesity due to excess calories; R73.9 Hyperglycemia, unspecified; Z91.040 Latex allergy status; Z88.8 Allergy status to other drugs, medicaments and biological substances; Z79.899 Other long term (current) drug therapy
CPT/HCPCS: 36415; 36416; 80048; 80053; 80202; 81001; 83036; 83605; 85025; 85652; 86140; 87389; 93306; 93970; 97139; A9579; J1650; J1940; J2185; J2270; J2405; J3370; J3370-JW; J3490; P9047